=== PATIENT | female | born 1945 | race Caucasian/White ===

== ENCOUNTER → 2017-08-10 10:59 | Outpatient (CLI) | payer MEDICARE, SELFPAY ==
[2017-08-10 13:44] LABS: AST(SGOT) 16 U/L (15-37); Alanine Aminotransfer ALT/SGPT 18 U/L (13-56); Anion Gap 8 (5-15); BUN 26 mg/dL (7-18); BUN/Creat Ratio 22.2 RATIO (10-20); Calcium,Total 9.1 mg/dL (8.5-10.1); Chloride 112 mmol/L (98-107); Cholesterol 140 mg/dL (200); Creatinine, Serum 1.17 mg/dL (0.55-1.02); EST Glomerular Filtration Rate 49 mL/min (>60); Est Glom Filt Rate - Afr Amer 59 mL/min (>60); Glucose 80 mg/dL (74-106); High Density Lipoprotein 78 mg/dL; Potassium 4.4 mmol/L (3.5-5.1); Sodium Level 143 mmol/L (136-145); T4 Total, Thyroxin 13.7 ug/dL (4.8-13.9); Thyroid Stim Hormone (TSH) 4.18 uIU/mL (0.358-3.74); Triglycerides 62 mg/dL; Very Low Density Lipoprotein 12 mg/dL (5-40)
== END ==
PROVIDERS: Family Provider Family Medicine; PCP Family Medicine; Visit Provider Family Medicine
DX: E78.5 Hyperlipidemia, unspecified (principal); I47.1 Supraventricular tachycardia; E03.9 Hypothyroidism, unspecified
CPT/HCPCS: 36415; 80048; 80061; 84436; 84443; 84450; 84460

== ENCOUNTER → 2017-10-16 10:29 | Outpatient (CLI) | payer MEDICARE, SELFPAY | PROVIDERS: Family Provider Family Medicine; PCP Family Medicine; Visit Provider Family Medicine | DX: E03.9 Hypothyroidism, unspecified (principal) | CPT/HCPCS: 36415; 84443 ==

== ENCOUNTER → 2018-03-22 11:46 | Outpatient (CLI) | payer MEDICARE, SELFPAY ==
[2018-03-05 12:47] VITALS: BMI 36.2
--- NOTE | 2018-03-22 11:50 | BI_ITS ---
MAMMOGRAPHY - BILATERAL SCREENING 3-D RICKY SYNTHESIS REASON FOR EXAM: Female, 72 years old. Bilateral Screening 3-D tomosynthesis PERTINENT HISTORY: No significant family history. TECHNIQUE: 2-D mammograms and 3-D Ricky synthesis of the breast (s) were performed. CAD was performed. COMPARISON: February 14, 2017, April 05, 2015 FINDINGS: The breast composition is almost entirely fat. There is a pacemaker present. Scattered benign calcifications are seen. No dense spiculated masses or suspicious microcalcifications are identified. No architectural distortion is identified. There is no skin thickening or retraction. There has been no significant change since the prior study. BI/SCREENING MAMM (CAD), BILAT IMPRESSION: No mammographic signs of malignancy. Routine yearly mammograms recommended. ASSESSMENT CATEGORY: BIRADS Category 2: Benign. A letter regarding these results will be sent to the patient by the facility within 30 days. FOLLOW UP RECOMMENDATION: Yearly follow up mammogram recommended. (A) Approximately 10% of breast cancers are not detected by mammography. A normal mammogram should not delay biopsy of a clinically suspicious abnormality. Electronically Signed: Papi Angulo MD at 11:12 EST , Service support ,
== END ==
PROVIDERS: Family Provider Family Medicine; PCP Family Medicine; Visit Provider Family Medicine
DX: Z12.31 Encounter for screening mammogram for malignant neoplasm of breast (principal)
CPT/HCPCS: 77063; 77067

== ENCOUNTER → 2018-08-13 10:58 | Outpatient (CLI) | payer MEDICARE, SELFPAY ==
[2018-03-05 12:47] VITALS: BMI 36.2
[2018-08-13 13:01] LABS: AST(SGOT) 22 U/L (15-37); Alanine Aminotransfer ALT/SGPT 24 U/L (13-56); Anion Gap 5 (5-15); BUN 27 mg/dL (7-18); Calcium,Total 9.1 mg/dL (8.5-10.1); Chloride 109 mmol/L (98-107); Cholesterol 153 mg/dL (200); Creatinine, Serum 1.04 mg/dL (0.55-1.02); EST Glomerular Filtration Rate 56 mL/min (>60); Est Glom Filt Rate - Afr Amer 67 mL/min (>60); Glucose 88 mg/dL (74-106); High Density Lipoprotein 76 mg/dL; Potassium 4.7 mmol/L (3.5-5.1); Sodium Level 141 mmol/L (136-145); Thyroid Stim Hormone (TSH) 0.39 uIU/mL (0.358-3.74); Triglycerides 72 mg/dL; Very Low Density Lipoprotein 14 mg/dL (5-40)
== END ==
PROVIDERS: Family Provider Family Medicine; PCP Family Medicine; Referring Provider Family Medicine; Visit Provider Family Medicine
DX: I10 Essential (primary) hypertension (principal); E03.9 Hypothyroidism, unspecified; E78.5 Hyperlipidemia, unspecified
CPT/HCPCS: 36415; 80048; 80061; 84436; 84443; 84450; 84460

== ENCOUNTER → 2019-05-23 12:10 | Outpatient (CLI) | payer MEDICARE, SELFPAY ==
[2019-03-06 09:10] VITALS: BMI 36.0
--- NOTE | 2019-05-23 12:12 | BI_ITS ---
MAMMOGRAPHY - BILATERAL SCREENING REASON FOR EXAM: Female, 73 years old. Routine annual screening examination. PERTINENT HISTORY: No family history of breast cancer TECHNIQUE: Digital bilateral breast ricky (3D mammographic acquisition) in the CC and MLO projections. 2-D mediolateral oblique (MLO) and craniocaudad (CC) views of both breasts were obtained. CAD: Full Field Digital Mammography with Computer Added Detection was performed. COMPARISON: None. FINDINGS: Breast Composition: Scattered breast parenchyma is identified There are no dominant masses or suspicious calcifications. No other significant abnormalities are identified. BI/SCREEN MAMM (CAD) W/RICKY BILAT IMPRESSION: Stable bilateral screening mammogram. Yearly follow-up mammogram recommended. (A) ASSESSMENT CATEGORY: BIRADS Category 1: Negative. A letter regarding these results will be sent to the patient by the facility within 30 days. Approximately 10% of breast cancers are not detected by mammography. A normal mammogram should not delay biopsy of a clinically suspicious abnormality. [id number] Electronically Signed: Coleman Maldonado, at 16:51 EST Tel , Service support ,
== END ==
PROVIDERS: Family Provider Family Medicine; PCP Family Medicine; Referring Provider Family Medicine; Visit Provider Family Medicine
DX: Z12.31 Encounter for screening mammogram for malignant neoplasm of breast (principal)
CPT/HCPCS: 77063; 77067

== ENCOUNTER → 2019-08-12 10:47 | Outpatient (CLI) | payer MEDICARE, SELFPAY ==
[2019-05-23 13:23] VITALS: BMI 36.6
[2019-08-12 13:21] LABS: AST(SGOT) 14 U/L (15-37); Alanine Aminotransfer ALT/SGPT 18 U/L (13-56); Anion Gap 8 (5-15); BUN 26 mg/dL (7-18); BUN/Creat Ratio 26.6 RATIO (10-20); Calcium,Total 8.9 mg/dL (8.5-10.1); Chloride 111 mmol/L (98-107); Cholesterol 137 mg/dL (200); Creatinine, Serum 0.98 mg/dL (0.55-1.02); EST Glomerular Filtration Rate 59 mL/min (>60); Est Glom Filt Rate - Afr Amer 72 mL/min (>60); Glucose 89 mg/dL (74-106); High Density Lipoprotein 64 mg/dL; Sodium Level 144 mmol/L (136-145); T4 Total, Thyroxin 15.2 ug/dL (4.8-13.9); Thyroid Stim Hormone (TSH) 0.43 uIU/mL (0.358-3.74); Triglycerides 60 mg/dL; Very Low Density Lipoprotein 12 mg/dL (5-40)
== END ==
PROVIDERS: PCP Family Medicine; Visit Provider Family Medicine
DX: E78.5 Hyperlipidemia, unspecified (principal); E03.9 Hypothyroidism, unspecified; I10 Essential (primary) hypertension
CPT/HCPCS: 36415; 80048; 80061; 84436; 84443; 84450; 84460

== ENCOUNTER → 2020-05-13 08:34 | Outpatient (CLI) | payer MEDICARE, SELFPAY ==
[2020-05-10 10:45] VITALS: BMI 37.6
[2020-05-13 10:28] LABS: ALB/GLOB Ratio 0.9 RATIO (0.9-2.4); AST(SGOT) 22 U/L (15-37); Alanine Aminotransfer ALT/SGPT 26 U/L (13-56); Albumin, Serum 3.7 g/dL (3.2-5.0); Alkaline Phosphatase 124 U/L (45-117); Anion Gap 5 (5-15); BUN 19 mg/dL (7-18); BUN/Creat Ratio 13.3 RATIO (10-20); Calcium,Total 9.1 mg/dL (8.5-10.1); Chloride 106 mmol/L (98-107); Cholesterol 166 mg/dL (200); Creatinine, Serum 1.43 mg/dL (0.55-1.02); EST Glomerular Filtration Rate 38 mL/min (>60); Est Glom Filt Rate - Afr Amer 46 mL/min (>60); Free T3 1.6 pg/mL (2.18-3.98); Globulin 3.9 g/dL (2.2-4.2); Glucose 115 mg/dL (74-106); High Density Lipoprotein 92 mg/dL; Potassium 4.2 mmol/L (3.5-5.1); Protein, Total 7.6 g/dL (6.4-8.2); Sodium Level 140 mmol/L (136-145); T4 Free Direct 1.87 ng/dL (0.76-1.46); Thyroid Stim Hormone (TSH) 8.35 uIU/mL (0.358-3.74); Triglycerides 111 mg/dL; Very Low Density Lipoprotein 22 mg/dL (5-40)
--- NOTE | 2020-05-13 17:09 | PFTCOMP_ITS ---
COMPLETE PULMONARY FUNCTION TEST INTERPRETATION Brief HPI: Patient is a 74 year old female, currently under the care of Damari Reese, who presents to [facility] for complete pulmonary function tests secondary to diagnosis of A. fib. Respiratory therapist reports good effort and reproducible results. Patient did have significant difficulty with exhalation, likely underestimating FVC Interpretation: Forced expiration spirometry shows no large airways obstructive ventilatory defect with an FEV1 of 93% predicted. There is no significant bronchodilator response by strict ATS criteria. Spirograms are of poor quality and do not plateau. The respiratory flow volume loop shows a normal pattern. Lung volumes by body plethysmography show a normal total lung capacity at 4.68 L, 106% predicted. FRC and RV are elevated out of proportion. Lung volume measurements are consistent with air-trapping. Diffusion capacity by carbon monoxide is decreased at 61% predicted. The airway resistance is normal. No previous pulmonary function tests were available for review. Impression: Isolated reduction in diffusion capacity with some stigmata of possible small airways disease. Would recommend continued monitoring of DLCO if patient continued on amiodarone
== END ==
PROVIDERS: PCP Family Medicine; Referring Provider Physician Assistant Medical; Visit Provider Physician Assistant Medical
DX: I48.0 Paroxysmal atrial fibrillation (principal); I10 Essential (primary) hypertension; E78.5 Hyperlipidemia, unspecified
CPT/HCPCS: 36415; 80053; 80061; 84439; 84443; 84481; 94060; 94726; 94729

== ENCOUNTER → 2020-06-02 09:46 | Outpatient (CLI) | payer MEDICARE, SELFPAY ==
[2020-05-10 10:45] VITALS: BMI 37.6
--- NOTE | 2020-06-02 09:48 | BI_ITS ---
MAMMOGRAPHY - BILATERAL SCREENING REASON FOR EXAM: Female, 74 years old. Routine annual screening examination. PERTINENT HISTORY: CURRENT RASH UNDER BILAT BREAST TECHNIQUE: Digital bilateral breast ricky (3D mammographic acquisition) in the CC and MLO projections. 2-D mediolateral oblique (MLO) and craniocaudad (CC) views of both breasts were obtained. CAD: Full Field Digital Mammography with Computer Added Detection was performed. COMPARISON: 05/23/2019 and 03/22/2018 FINDINGS: Breast Composition: The breasts are almost entirely fatty. There are no dominant masses or suspicious calcifications. No other significant abnormalities are identified. BI/SCRN MAMM (CAD)W/RICKY BILAT IMPRESSION: Stable bilateral screening mammogram. Yearly follow-up mammogram recommended. (A) ASSESSMENT CATEGORY: BIRADS Category 2: Benign. A letter regarding these results will be sent to the patient by the facility within 30 days. Approximately 10% of breast cancers are not detected by mammography. A normal mammogram should not delay biopsy of a clinically suspicious abnormality. [id number] Electronically Signed: Zakia Cordero MD at 16:50 EST Tel , Service support ,
== END ==
PROVIDERS: PCP Family Medicine; Referring Provider Family Medicine; Visit Provider Family Medicine
DX: Z12.31 Encounter for screening mammogram for malignant neoplasm of breast (principal)
CPT/HCPCS: 77063; 77067

== ENCOUNTER → 2020-08-13 10:51 | Outpatient (CLI) | payer MEDICARE, SELFPAY ==
[2020-05-10 10:45] VITALS: BMI 37.6
[2020-08-13 12:43] LABS: AST(SGOT) 17 U/L (15-37); Alanine Aminotransfer ALT/SGPT 24 U/L (13-56); Cholesterol 133 mg/dL (200); High Density Lipoprotein 78 mg/dL; T4 Total, Thyroxin 16.9 ug/dL (4.8-13.9); Thyroid Stim Hormone (TSH) 0.26 uIU/mL (0.358-3.74); Triglycerides 63 mg/dL; Very Low Density Lipoprotein 13 mg/dL (5-40)
== END ==
PROVIDERS: PCP Family Medicine; Referring Provider Family Medicine; Visit Provider Family Medicine
DX: E78.5 Hyperlipidemia, unspecified (principal); E03.9 Hypothyroidism, unspecified
CPT/HCPCS: 36415; 80048; 80061; 84436; 84443; 84450; 84460

== ENCOUNTER 2021-06-14 10:22 | Outpatient (CLI) | payer MEDICARE, SELFPAY ==
--- NOTE | 2021-06-14 10:25 | BI_ITS ---
MAMMOGRAPHY - BILATERAL SCREENING REASON FOR EXAM: Female, 75 years old. Routine annual screening examination. PERTINENT HISTORY: Non-contributory. TECHNIQUE: Digital bilateral breast ricky (3D mammographic acquisition) in the CC and MLO projections. 2-D mediolateral oblique (MLO) and craniocaudad (CC) views of both breasts were obtained. CAD: Full Field Digital Mammography with Computer Added Detection was performed. COMPARISON: Comparison is made with prior study dated 06/02/2020 and 05/23/2019. FINDINGS: Breast Composition: There are scattered areas of fibroglandular density. There are no dominant masses or suspicious calcifications. No other significant abnormalities are identified. There has been no significant change since the prior study. BI/SCRN MAMM (CAD)W/RICKY BILAT IMPRESSION: Stable bilateral screening mammogram. Yearly follow-up mammogram recommended. (A) ASSESSMENT CATEGORY: BIRADS Category 1: Negative. A letter regarding these results will be sent to the patient by the facility within 30 days. Approximately 10% of breast cancers are not detected by mammography. A normal mammogram should not delay biopsy of a clinically suspicious abnormality. [id number] Electronically Signed: Clint Young MD at 11:10 EDT ,
== END 2021-06-14 23:59 | disposition home or self-care (01) ==
PROVIDERS: PCP Family Medicine; Visit Provider Family Medicine
DX: Z12.31 Encounter for screening mammogram for malignant neoplasm of breast (principal)
CPT/HCPCS: 77063; 77067

== ENCOUNTER → 2021-08-15 | Outpatient (CLI) | payer MEDICARE, SELFPAY ==
[2021-08-15 13:22] LABS: Anion Gap 8 (5-15); BUN 30 mg/dL (7-18); Calcium,Total 8.9 mg/dL (8.5-10.1); Chloride 110 mmol/L (98-107); Cholesterol 157 mg/dL (200); EST Glomerular Filtration Rate 47 mL/min (>60); Est Glom Filt Rate - Afr Amer 57 mL/min (>60); Glucose 87 mg/dL (74-106); High Density Lipoprotein 84 mg/dL; Potassium 4.5 mmol/L (3.5-5.1); Sodium Level 143 mmol/L (136-145); Triglycerides 58 mg/dL
[2021-08-15 13:23] LABS: Very Low Density Lipoprotein 12 mg/dL (5-40)
== END | disposition home or self-care (01) ==
LOC: MFPLAB 11:17
PROVIDERS: PCP Family Medicine; Visit Provider Family Medicine
DX: I10 Essential (primary) hypertension (principal)
CPT/HCPCS: 36415; 80048; 80061

== ENCOUNTER → 2021-11-25 | Outpatient (CLI) | payer MEDICARE, SELFPAY ==
--- NOTE | 2021-11-25 12:40 | PFTCOMP ---
COMPLETE PULMONARY FUNCTION TEST INTERPRETATION Brief HPI: Patient is a 76 -year-old female, currently under the care of Coleman Dutta, who presents to [facility] for complete pulmonary function tests secondary to diagnosis of amiodarone use. Respiratory therapist reports good effort and reproducible results. Interpretation: Forced expiration spirometry shows no large airways obstructive ventilatory defect with an FEV1 of 92% predicted. There is a significant bronchodilator response in FVC by strict ATS criteria. Spirograms are of good quality and plateau normally. The respiratory flow volume loop shows a normal pattern. Lung volumes by body plethysmography show a normal total lung capacity at 4.89 L, 112% predicted. FRC and RV are elevated out of proportion. Lung volume measurements are consistent with hyperinflation and air-trapping. Diffusion capacity by carbon monoxide is at the lower limit of normal at 63% predicted. The airway resistance is normal. Compared to previous pulmonary function tests from 05/13/20, there has been no significant change. Impression: Isolated reduction diffusion capacity with some stigmata of small airways disease, but no significant change compared to 2020.
== END | disposition home or self-care (01) ==
LOC: PSN 10:27
PROVIDERS: PCP Family Medicine; Referring Provider Nurse Practitioner Family; Visit Provider Nurse Practitioner Family
DX: Z79.899 Other long term (current) drug therapy (principal)
CPT/HCPCS: 94060; 94726; 94729

== ENCOUNTER → 2022-02-13 | Outpatient (CLI) | payer MEDICARE, SELFPAY ==
[2022-02-13 13:01] LABS: T4 Total, Thyroxin 16.5 ug/dL (4.8-13.9); Thyroid Stim Hormone (TSH) 8.39 uIU/mL (0.358-3.74)
== END | disposition home or self-care (01) ==
LOC: MFPLAB 10:19
PROVIDERS: PCP Family Medicine; Visit Provider Family Medicine
DX: E03.9 Hypothyroidism, unspecified (principal)
CPT/HCPCS: 36415; 84436; 84443

== ENCOUNTER → 2022-06-15 | Outpatient (CLI) | payer MEDICARE, SELFPAY ==
--- NOTE | 2022-06-15 09:00 | BI_ITS ---
MAMMOGRAPHY - BILATERAL SCREENING REASON FOR EXAM: Female, 76 years old. Routine annual screening examination. PERTINENT HISTORY: Non-contributory. TECHNIQUE: Digital bilateral breast ricky (3D mammographic acquisition) in the CC and MLO projections. 2-D mediolateral oblique (MLO) and craniocaudad (CC) views of both breasts were obtained. CAD: Full Field Digital Mammography with Computer Added Detection was performed. COMPARISON: Comparison is made with prior study dated June 14, 2021 and June 02, 2020. FINDINGS: Breast Composition: There are scattered areas of fibroglandular density. There are no dominant masses or suspicious calcifications. Stable asymmetry of breast tissue with more breast tissue is seen in the upper lateral aspect of the left breast as compared to the right side. A pacemaker battery pack is seen in the right axillary region. No other significant abnormalities are identified. There has been no significant change since the prior study. BI/SCRN MAMM (CAD)W/RICKY BILAT IMPRESSION: Stable bilateral screening mammogram. Yearly follow-up mammogram recommended. (A) ASSESSMENT CATEGORY: BIRADS Category 2: Benign. A letter regarding these results will be sent to the patient by the facility within 30 days. Approximately 10% of breast cancers are not detected by mammography. A normal mammogram should not delay biopsy of a clinically suspicious abnormality. [id number] Electronically Signed: Clint Young MD at 11:11 EDT ,
== END | disposition home or self-care (01) ==
LOC: OPBI 08:58
PROVIDERS: PCP Family Medicine; Referring Provider Family Medicine; Visit Provider Family Medicine
DX: Z12.31 Encounter for screening mammogram for malignant neoplasm of breast (principal)
CPT/HCPCS: 77063; 77067

== ENCOUNTER 2022-07-03 20:11 | Emergency (ER) | payer MEDICARE, SELFPAY ==
[2022-07-03 20:12] VITALS: BP 164/60; PULSE 60; RESP 18; TEMP 36.1; O2SAT 100; BMI 31.3
--- NOTE | 2022-07-03 23:11 | RAD_ITS ---
INDICATION: fall EXAMINATION/TECHNIQUE: X-RAY - RIGHT XR Humerus Min 2 Views 3 VIEWS COMPARISON: None. FINDINGS: SOFT TISSUES: No soft tissue swelling or gas. No radiopaque foreign body. BONES/JOINTS Anterior-inferior glenohumeral dislocation. Greater tuberosity comminuted displaced fracture.. Normal acromioclavicular alignment with mild degenerative change. Preservation of the joint space. No sclerotic or destructive changes observed. Cardiac pacer present. RAD/Humerus min 2 Views IMPRESSION: Anterior-inferior glenohumeral dislocation. Comminuted displaced humeral greater tuberosity fracture. Electronically Signed: Sammy Savage MD at 0:11 EDT ,
--- NOTE | 2022-07-03 23:11 | EX.ED.GENINJ ---
HPI History of Present Illness Chief Complaint: Fall Informant: patient and family Onset/Context/Timing Onset: Today Location of pain/injuries: Right arm Current Severity: Moderate Maximum Severity: Moderate Narrative Narrative: Patient present secondary to right arm injury. Patient got up too quickly today and was lightheaded and fell. She injured her right upper arm. She is right-hand dominant. She denies striking her head. Although Eliquis was initially listed on her med list, family states that she is no longer on Eliquis. She did not lose consciousness and has otherwise been acting appropriately. She was able to get up and ambulate after her fall and has had no hip or lower extremity pain. [facility] Medical History (Updated 07/04/22 @ 02:[address] Molly Gonsalves MD) Atrial fibrillation with rapid ventricular response (11/07/19) Dyslipidemia Essential (primary) hypertension Hypothyroidism Mental disability Obesity (BMI 35.0-39.9 without comorbidity) Paroxysmal atrial fibrillation (11/07/19) Paroxysmal atrial tachycardia Sick sinus syndrome Sinus bradycardia Home Medications multivitamin,[id number] (Complete Multivitamin tablet) 1 tab PO QDAY 09/04/17 [History Last Taken Unknown] pravastatin 40 mg tablet 40 mg PO QDAY 09/04/17 [History Last Taken Unknown] ibuprofen 200 mg capsule 200 mg PO TID-QID PRN 09/05/17 [History Last Taken Unknown] apixaban 5 mg tablet (Eliquis) 5 mg PO BID #180 tabs 11/14/19 [Rx Last Taken Unknown] metoprolol succinate 50 mg tablet,extended release 24 hr (Toprol XL) 50 mg PO DAILY #90 tabs 11/14/19 [Rx Last Taken Unknown] levothyroxine 150 mcg tablet 150 mcg PO DAILY 11/12/20 [History Last Taken Unknown] amiodarone 200 mg tablet 100 mg PO DAILY #45 tabs 03/22/21 [Rx Last Taken Unknown] hydrocodone-acetaminophen 5-325mg 5mg-325mg 1 tab PO Q6H PRN PRN Pain 4 days #16 TABLETS 07/04/22 [Rx Last Taken Unknown] Allergy/AdvReac Type Severity Reaction Status Date / Time No Known Allergies Allergy Verified 05/25/22 11:13 Family History Mother CAD (coronary artery disease) Hypertension Heart disease afib Father CAD (coronary artery disease) CVA (cerebral vascular accident) Hypertension Heart disease afib Surgical History History of tonsillectomy Presence of cardiac pacemaker (08/24/15) Social History Smoking Status: Never smoker how long ago did patient quit smokin or more years alcohol intake: never substance use type: does not use caffeine: Yes Type: coffee Number of servings: 1 ROS ROS ED Constitutional Constitutional ED: Denies chills or fever(s) Eyes Eyes: Denies change in vision ENT ENT ED: Denies rhinorrhea or sore throat Cardiovascular Cardiovascular: Denies chest pain or palpitations Respiratory/Chest Respiratory/Chest: Denies cough or dyspnea Gastrointestinal Gastrointestinal: Denies abdominal pain, nausea or vomiting Genitourinary Genitourinary ED: Denies dysuria Musculoskeletal Musculoskeletal: Reports extremity pain; Denies back pain Integumentary Denies Abrasions or rash Neurologic Neurologic: Denies headache(s) or weakness Psychiatric Psychiatric: Denies anxiety or depression Allergic/Immunologic Allergic/Immunologic ED: Denies lip swelling or urticaria EXAM Physical Exam Const Vital Signs: 07/03/22 20:12 07/03/22 23:03 07/04/22 00:18 Temperature 96.9 F L Temperature Source Temporal Pulse Rate 60 Pulse Rate [1 (Initial Baseline)] Pulse Rate [2] Respiratory Rate 18 Respiratory Rate [1 (Initial Baseline)] Respiratory Rate [2] Respiratory Effort Normal Blood Pressure 164/60 H Blood Pressure [1 (Initial Baseline)] Blood Pressure [2] Blood Pressure Mean 94 Pulse Ox 100 99 Oxygen Delivery Method Room Air Room Air Room Air Oxygen Delivery Method [1 (Initial Baseline)] Oxygen Delivery Method [2] Oxygen Flow Rate (L/min) 98 Oxygen Flow Rate (L/min) [1 (Initial Baseline)] Oxygen Flow Rate (L/min) [2] 07/04/22 01:31 07/04/22 01:33 07/04/22 01:52 Temperature 98.7 F Temperature Source Pulse Rate 74 Pulse Rate [1 (Initial Baseline)] 68 Pulse Rate [2] 63 Respiratory Rate 22 H Respiratory Rate [1 (Initial Baseline)] 16 Respiratory Rate [2] 17 Respiratory Effort Blood Pressure 154/60 H Blood Pressure [1 (Initial Baseline)] 161/60 H Blood Pressure [2] 150/54 H Blood Pressure Mean Pulse Ox 97 Oxygen Delivery Method Room Air Room Air Oxygen Delivery Method [1 (Initial Baseline)] Room Air Oxygen Delivery Method [2] Nasal Cannula Oxygen Flow Rate (L/min) Oxygen Flow Rate (L/min) [1 (Initial Baseline)] 2 Oxygen Flow Rate (L/min) [2] 2 07/04/22 01:55 07/04/22 02:00 07/04/22 02:01 Temperature Temperature Source Pulse Rate 62 63 Pulse Rate [1 (Initial Baseline)] Pulse Rate [2] Respiratory Rate 22 H 15 Respiratory Rate [1 (Initial Baseline)] Respiratory Rate [2] Respiratory Effort Blood Pressure 144/58 H 141/64 H Blood Pressure [1 (Initial Baseline)] Blood Pressure [2] Blood Pressure Mean Pulse Ox 96 95 95 Oxygen Delivery Method Room Air Room Air Room Air Oxygen Delivery Method [1 (Initial Baseline)] Oxygen Delivery Method [2] Oxygen Flow Rate (L/min) Oxygen Flow Rate (L/min) [1 (Initial Baseline)] Oxygen Flow Rate (L/min) [2] 07/04/22 02:06 07/04/22 02:41 Temperature Temperature Source Pulse Rate 63 66 Pulse Rate [1 (Initial Baseline)] Pulse Rate [2] Respiratory Rate 17 17 Respiratory Rate [1 (Initial Baseline)] Respiratory Rate [2] Respiratory Effort Blood Pressure 144/55 H 140/55 H Blood Pressure [1 (Initial Baseline)] Blood Pressure [2] Blood Pressure Mean Pulse Ox 97 98 Oxygen Delivery Method Room Air Oxygen Delivery Method [1 (Initial Baseline)] Oxygen Delivery Method [2] Oxygen Flow Rate (L/min) Oxygen Flow Rate (L/min) [1 (Initial Baseline)] Oxygen Flow Rate (L/min) [2] Positive well nourished and well developed General Appearance ED: well developed HEENT Reports normocephalic and head/scalp atraumatic Eyes PERRL and EOMs intact bilaterally Neck supple Chest Wall inspection of chest normal and palpation of chest normal Resp normal respiratory effort and clear to auscultation bilaterally Cardio regular rate and regular rhythm GI normal to inspection, nondistended, normoactive bowel sounds Palpation: soft Extremity Extremity Narrative: Tenderness palpation right mid to upper humerus. Strong distal pulse with good hand grasp on the right. Normal sensation and cap refill. Neuro no sensory deficits noted Sensorium / Orientation: alert Psych mental status grossly normal Skin no rashes or lesions noted PROC Procedures Procedural Sedation 1 (Initial Baseline): Consent Signed: Yes Any Problems With Anesthesia: No You/Your family experience fever (hyperthermia) w/anesthesia: No Sedation medication: Propofol Dose: 100 Route: IV Total Moderate Sedation Units: 16 Maliampati Score: Class III ASA Classification: II MDM MDM MDM Narrative Medical decision making narrative: Patient given a tab of [place] and right humerus x-rays obtained. Radiography Diagnostic Testing: Clinical Impression(s) from Imaging Studies Humerus X-Ray 07/03/22 23:11 IMPRESSION: Anterior-inferior glenohumeral dislocation. Comminuted displaced humeral greater tuberosity fracture. Electronically Signed: Sammy Savage MD at 0:11 EDT , Shoulder X-Ray 07/04/22 01:52 IMPRESSION: Successful glenohumeral joint reduction with improved alignment of greater tuberosity fracture.. Electronically Signed: Sammy Savage MD at 2:15 EDT , Treatment and Re-Evaluation Narrative: Right humerus x-rays reviewed by myself. There is evidence of a shoulder dislocation. Radiology interpretation is reviewed and agrees. It also appears she has a small fracture off the greater tuberosity. Test results discussed with sister who is POA at bedside. She gives consent for procedural sedation for closed reduction of the right shoulder. Please see procedure note. Repeat right shoulder x-rays are obtained after reduction. There is good reduction at the glenohumeral joint per my interpretation. Radiology interpretation is reviewed. At this time patient is awake and tolerating p.o. I will send a prescription for analgesics to the pharmacy for her and refer her to orthopedics. Return instructions given. Discharge Plan Triage Chief Complaint: Fall ED Provider: Molly Gonsalves Dx/Rx/DC Orders Clinical Impression: Fall, Dislocation of shoulder, right, closed, Closed fracture of greater tuberosity of humerus Instructions: ED Dislocation: Shoulder (Reduced), ED Fracture, Shoulder Prescriptions: New hydrocodone-acetaminophen 5-325 mg tablet 1 tab PO Q6H PRN PRN (Reason: Pain) 4 Days Qty: 16 0RF No Action ibuprofen 200 mg capsule 200 mg PO TID-QID PRN multivitamin,su-wkqv-tdhthcre tablet tablet 1 tab PO QDAY pravastatin 40 mg tablet 40 mg PO QDAY metoprolol succinate [Toprol XL] 50 mg tablet extended release 24 hr 50 mg PO DAILY Qty: 90 3RF Eliquis 5 mg tablet 5 mg PO BID Qty: 180 3RF levothyroxine 150 mcg tablet 150 mcg PO DAILY amiodarone 200 mg tablet 100 mg PO DAILY Qty: 45 3RF Primary Care Provider: Katy Cruz Referrals: Katy Cruz MD [Primary Care Provider] - Rainer Kay MD [Med Staff - Active Staff] - 3-5 Days Disposition Disposition: Home, Self Care Discharge Date/Time: 07/04/22 02:42
[2022-07-03] MEDS: HYDROcodone Bitartrate/Apap 5/325 Tablet PO (23:30)
[2022-07-04] VITALS (9 sets, daily range): BP systolic 140–161; BP diastolic 54–64; PULSE 62–74; RESP 15–22; TEMP 37.1; O2SAT 95–99
--- NOTE | 2022-07-04 01:52 | RAD_ITS ---
INDICATION: post reduction EXAMINATION/TECHNIQUE: X-RAY - RIGHT XR Shoulder Min 2 Views 2 VIEWS COMPARISON: July 03, 2022. FINDINGS: SOFT TISSUES: Superior lateral shoulder edema.. No radiopaque foreign body. BONES/JOINTS: Normal glenohumeral joint alignment.. Greater tuberosity fracture is more difficult to appreciate.. Normal acromioclavicular alignment. No aggressive osseous lesion. RAD/Shoulder min 2 Views IMPRESSION: Successful glenohumeral joint reduction with improved alignment of greater tuberosity fracture.. Electronically Signed: Sammy Savage MD at 2:15 EDT ,
== END 2022-07-04 02:42 | disposition home or self-care (01) ==
PROVIDERS: Emergency Provider Emergency Medicine; PCP Family Medicine; Visit Provider Emergency Medicine
DX: S42.351A Displaced comminuted fracture of shaft of humerus, right arm, initial encounter for closed fracture (principal); I10 Essential (primary) hypertension; E78.5 Hyperlipidemia, unspecified; Z87.891 Personal history of nicotine dependence; W19.XXXA Unspecified fall, initial encounter
CPT/HCPCS: 23650; 73030; 73060; 99152; 99285; J7030; A4216

== ENCOUNTER → 2022-07-18 | Outpatient (CLI) | payer MEDICARE, SELFPAY ==
[2022-07-18 12:57] LABS: Absolute Lymphocyte Count 1.19 X10^3/uL (0.83-4.51); Absolute Neutrophil Count 3.5 X10^3/uL (2.0-7.7); Basophil# 0.01 X10^3/uL; Basophil% 0.2 % (0-1); Hemoglobin 13.2 g/dL (12.0-15.0); Lymphocyte # 1.19 X10^3/ul (0.83-4.51); Lymphocyte % 23.3 % (19-41); Mean Corp Hgb Conc 32.2 g/dL (32-36); Mean Corpuscular Hgb 31.6 pg (27.0-32.0); Mean Corpuscular Volume 98.1 fL (81-99); Mean Platelet Vol. 11.3 fl (6.2-12.0); Monocyte# 0.44 X10^3/uL; Monocyte% 8.6 % (0-10); NRBC Flagged by Analyzer 0 % (0-5); Neutrophil # 3.46 X10^3/uL (2.7-7.7); Neutrophil % 67.7 % (47-70); Platelet Count 258 K/mm3 (150-450); RBC Distribution Width CV 13.2 % (11.6-14.6); RBC Distribution Width SD 46.8 fl (35.1-43.9); Red Blood Count 4.18 M/mm3 (4.2-5.4); White Blood Count 5.1 K/mm3 (4.4-11.0)
[2022-07-18 14:16] LABS: ALB/GLOB Ratio 0.9 RATIO (0.9-2.4); AST(SGOT) 22 U/L (15-37); Alanine Aminotransfer ALT/SGPT 23 U/L (13-56); Albumin, Serum 3.2 g/dL (3.2-5.0); Alkaline Phosphatase 152 U/L (45-117); Anion Gap 5 (5-15); BUN 20 mg/dL (7-18); BUN/Creat Ratio 20.8 RATIO (10-20); Calcium,Total 8.9 mg/dL (8.5-10.1); Chloride 107 mmol/L (98-107); Creatinine, Serum 0.96 mg/dL (0.55-1.02); EST Glomerular Filtration Rate 60 mL/min (>60); Est Glom Filt Rate - Afr Amer 73 mL/min (>60); Globulin 3.4 g/dL (2.2-4.2); Glucose 81 mg/dL (74-106); Potassium 4.2 mmol/L (3.5-5.1); Protein, Total 6.6 g/dL (6.4-8.2); Sodium Level 138 mmol/L (136-145)
== END | disposition home or self-care (01) ==
LOC: MFPLAB 10:54
PROVIDERS: PCP Family Medicine; Visit Provider Family Medicine
DX: R60.0 Localized edema (principal)
CPT/HCPCS: 36415; 80053; 84443; 85025

== ENCOUNTER → 2022-08-22 | Outpatient (CLI) | payer MEDICARE, SELFPAY ==
[2022-08-22 12:40] LABS: Thyroid Stim Hormone (TSH) 3.41 uIU/mL (0.358-3.74)
== END | disposition home or self-care (01) ==
LOC: MFPLAB 09:45
PROVIDERS: PCP Family Medicine; Visit Provider Family Medicine
DX: E03.9 Hypothyroidism, unspecified (principal)
CPT/HCPCS: 36415; 84443

== ENCOUNTER → 2022-09-08 | Outpatient (CLI) | payer MEDICARE, SELFPAY ==
--- NOTE | 2022-09-08 07:35 | CT_ITS ---
STUDY: CT RIGHT SHOULDER REASON FOR EXAM: Female, 77 years old. Nondisplaced fracture. RADIATION DOSAGE (If Supplied By Facility): CTDIvol = ( 25.24 ) mGy, DLP = ( 657.58 ) mGycm TECHNIQUE: The patient was scanned in a multi detector CT scanner. High resolution transaxial imaging was performed following the administration of 100 mL of Isovue-300 intravenous contrast material. Sagittal and coronal images were reconstructed. Individualized dose optimization techniques were used for this CT. COMPARISON: Right shoulder, July 04, 2022. 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 Normal glenoid rim, neck and visualized scapula. There is a healed fracture of the femoral head. There is bony productivity along the posterior aspect of the humeral head. There is also bony densities within the acromiohumeral space which appears narrowed.. Normal coracoid process. Normal visualized lateral clavicle. There is mild osteoarthritis with articular joint space narrowing. There is a Type II morphology (curved), with a neutral orientation. Normal visualized muscles and soft tissue structures. No evidence of vascular abnormality. CT/Extremity Upper WITH Contrast IMPRESSION: Healed fracture of the humeral head which appears slightly irregularity. There are associated bony fragments along the posterior aspect of the humeral head and within the acromiohumeral space. Electronically Signed: Nicholas Snow DO at 23:02 EDT ,
[2022-09-08 08:04] LABS: CREATININE FINGERSTICK < 0.9 mg/dL (0.55-1.02); EGFR FINGERSTICK > 60.0000 mL/min (>60)
== END | disposition home or self-care (01) ==
LOC: CT 07:33
PROVIDERS: PCP Family Medicine; Referring Provider Physician Assistant; Visit Provider Physician Assistant
DX: S42.254D Nondisplaced fracture of greater tuberosity of right humerus, subsequent encounter for fracture with routine healing (principal); S43.084D Other dislocation of right shoulder joint, subsequent encounter; X58.XXXD Exposure to other specified factors, subsequent encounter
CPT/HCPCS: 73201; Q9967

== ENCOUNTER → 2022-10-11 | Outpatient (CLI) | payer MEDICARE, SELFPAY ==
--- NOTE | 2022-10-11 10:30 | BD_ITS ---
STUDY: DUAL ENERGY X-RAY ABSORPTIOMETRY / DXA REASON FOR EXAM: Female, 77 years old. [id number] TECHNIQUE: Bone Mineral Density (BMD) measurements of lumbar spine and bilateral hips were obtained. COMPARISON: None. FINDINGS: Lumbar Spine (L1-L4): g/cm2 (0.876) / T-score (-0.9) / Z-score (1.3) Findings are suggestive of normal bone density with a low fracture risk. Left Femur Total: g/cm2 (0.682) / T-score (-2.1) / Z-score (-0.3) Left Femoral Neck: g/cm2 (0.547) / T-score (-2.7) / Z-score (-0.6) Right Femur Total: g/cm2 (0.686) / T-score (-2.1) / Z-score (-0.3) Right Femoral Neck: g/cm2 (0.542) / T-score (-2.8) / Z-score (-0.7) BD/Dexa Bone Density Study IMPRESSION: The patient is considered osteoporotic as outlined below according to World Bryant Organization (WHO) criteria with a high fracture risk. Reference Information: The T-score is the number of standard deviations above or below the standard which is normal for young adults at their peak bone mineral density. The World Health Organization (WHO) interprets the T-scores as follows: Above -1 Normal bone density Between -1 and -2.5 Osteopenia Equal to / or below -2.5 Osteoporosis As a practical clinical guideline, osteopenia may be graded as follows: Mild -1 through -1.5 Moderate -1.6 through -2.0 Severe -2.1 through -2.4 The Z-score is the number of standard deviations above or below age-matched controls. A Z-score of less than -1.5 would be considered abnormal. References: 1. NIH Osteoporosis and Related Bone Diseases www osteo.org 2. International Society for Clinical Densitometry www iscd.org 3. National Osteoporosis Foundation www nof.org Electronically Signed: Clint Young MD at 9:20 EDT ,
== END | disposition home or self-care (01) ==
LOC: OPBD 10:20
PROVIDERS: PCP Family Medicine; Referring Provider Family Medicine; Visit Provider Family Medicine
DX: Z78.0 Asymptomatic menopausal state (principal); N95.9 Unspecified menopausal and perimenopausal disorder
CPT/HCPCS: 77080

== ENCOUNTER → 2023-02-27 | Outpatient (CLI) | payer MEDICARE, SELFPAY ==
[2023-02-27 12:40] LABS: Microalbumin,Random Urine 23.8 mg/L (NO RANGE EST.); Microalbumin:Creatinine Ratio 21.2 mg/g CRE (<30 mg/g CRE)
[2023-02-27 13:18] LABS: AST(SGOT) 24 U/L (15-37); Alanine Aminotransfer ALT/SGPT 28 U/L (13-56); Anion Gap 5 (5-15); BUN 24 mg/dL (7-18); BUN/Creat Ratio 20.2 RATIO (10-20); Calcium,Total 8.7 mg/dL (8.5-10.1); Chloride 110 mmol/L (98-107); Cholesterol 173 mg/dL (200); Creatinine, Serum 1.19 mg/dL (0.55-1.02); EST Glomerular Filtration Rate 47 mL/min (>60); Est Glom Filt Rate - Afr Amer 57 mL/min (>60); Glucose 93 mg/dL (74-106); High Density Lipoprotein 100 mg/dL; Potassium 4.2 mmol/L (3.5-5.1); Sodium Level 136 mmol/L (136-145); T4 Total, Thyroxin 17.9 ug/dL (4.8-13.9); Thyroid Stim Hormone (TSH) 1.52 uIU/mL (0.358-3.74); Triglycerides 46 mg/dL; Very Low Density Lipoprotein 9 mg/dL (5-40)
== END | disposition home or self-care (01) ==
LOC: MFPLAB 10:43
PROVIDERS: PCP Family Medicine; Visit Provider Family Medicine
DX: I10 Essential (primary) hypertension (principal); E03.9 Hypothyroidism, unspecified; E78.5 Hyperlipidemia, unspecified
CPT/HCPCS: 36415; 80048; 80061; 82043; 82570; 84436; 84443; 84450; 84460

== ENCOUNTER → 2023-06-19 | Outpatient (CLI) | payer MEDICARE, SELFPAY ==
--- NOTE | 2023-06-19 11:37 | BI_ITS ---
MAMMOGRAPHY - BILATERAL SCREENING REASON FOR EXAM: Female, 77 years old. Routine annual screening examination. PERTINENT HISTORY: Aunt with breast cancer. TECHNIQUE: Digital bilateral breast ricky (3D mammographic acquisition) in the CC and MLO projections. 2-D mediolateral oblique (MLO) and craniocaudad (CC) views of both breasts were obtained. CAD: Full Field Digital Mammography with Computer Added Detection was performed. COMPARISON: Comparison is made with prior study dated June 15, 2022 and June 14, 2021. FINDINGS: Breast Composition: There are scattered areas of fibroglandular density. There are no dominant masses or suspicious calcifications. Once again, there is stable asymmetry of breast tissue where more breast tissue is seen in the upper lateral aspect of the left breast as compared to the right side. A pacemaker battery pack is once again seen in the left axilla. No other significant abnormalities are identified. There has been no significant change since the prior study. BI/SCRN MAMM (CAD)W/RICKY BILAT IMPRESSION: Stable bilateral screening mammogram. Yearly follow-up mammogram recommended. (A) ASSESSMENT CATEGORY: BIRADS Category 2: Benign. A letter regarding these results will be sent to the patient by the facility within 30 days. Approximately 10% of breast cancers are not detected by mammography. A normal mammogram should not delay biopsy of a clinically suspicious abnormality. [id number] Electronically Signed: Clint Young MD at 13:55 EDT ,
== END | disposition home or self-care (01) ==
LOC: OPBI 11:37
PROVIDERS: PCP Family Medicine; Referring Provider Family Medicine; Visit Provider Family Medicine
DX: Z12.31 Encounter for screening mammogram for malignant neoplasm of breast (principal); Z80.3 Family history of malignant neoplasm of breast
CPT/HCPCS: 77063; 77067

== ENCOUNTER → 2023-08-27 | Outpatient (CLI) | payer MEDICARE, SELFPAY ==
[2023-08-27 13:08] LABS: Absolute Lymphocyte Count 1.18 X10^3/uL (0.83-4.51); Absolute Neutrophil Count 2.7 X10^3/uL (2.0-7.7); Eosinophil# 0.07 X10^3/uL; Eosinophils% 1.6 % (0-5); Hematocrit 42.1 % (37-47); Lymphocyte # 1.18 X10^3/ul (0.83-4.51); Mean Corp Hgb Conc 33.3 g/dL (32-36); Mean Corpuscular Hgb 31.3 pg (27.0-32.0); Monocyte% 9.2 % (0-10); NRBC Flagged by Analyzer 0 % (0-5); Neutrophil # 2.71 X10^3/uL (2.7-7.7); Platelet Count 230 K/mm3 (150-450); RBC Distribution Width CV 12.7 % (11.6-14.6); RBC Distribution Width SD 43.7 fl (35.1-43.9); Red Blood Count 4.48 M/mm3 (4.2-5.4); White Blood Count 4.4 K/mm3 (4.4-11.0)
[2023-08-27 13:16] LABS: Erythrocyte Sedimentation Rate 7 mm/hr (0-30)
[2023-08-27 14:27] LABS: ALB/GLOB Ratio 0.9 RATIO (0.9-2.4); AST(SGOT) 23 U/L (15-37); Alanine Aminotransfer ALT/SGPT 30 U/L (13-56); Albumin, Serum 3.4 g/dL (3.2-5.0); Alkaline Phosphatase 210 U/L (45-117); Anion Gap 8 (5-15); BUN 18 mg/dL (7-18); BUN/Creat Ratio 15.8 RATIO (10-20); Chloride 101 mmol/L (98-107); Creatinine, Serum 1.14 mg/dL (0.55-1.02); EST Glomerular Filtration Rate 49 mL/min (>60); Est Glom Filt Rate - Afr Amer 60 mL/min (>60); Globulin 3.6 g/dL (2.2-4.2); Glucose 98 mg/dL (74-106); Potassium 4.5 mmol/L (3.5-5.1); Sodium Level 133 mmol/L (136-145); Thyroid Stim Hormone (TSH) 1.46 uIU/mL (0.358-3.74)
== END | disposition home or self-care (01) ==
LOC: MFPLAB 10:46
PROVIDERS: PCP Family Medicine; Visit Provider Family Medicine
DX: E03.9 Hypothyroidism, unspecified (principal); G30.0 Alzheimer's disease with early onset
CPT/HCPCS: 36415; 80053; 84443; 85025; 85652

== ENCOUNTER → 2024-02-25 | Outpatient (CLI) | payer MEDICARE, SELFPAY ==
[2024-02-25 12:33] LABS: AST(SGOT) 23 U/L (15-37); Alanine Aminotransfer ALT/SGPT 32 U/L (13-56); Anion Gap 6 (5-15); BUN 19 mg/dL (7-18); Calcium,Total 9.1 mg/dL (8.5-10.1); Chloride 101 mmol/L (98-107); Cholesterol 178 mg/dL (200); Creatinine, Serum 1.12 mg/dL (0.55-1.02); EST Glomerular Filtration Rate 50 mL/min (>60); Est Glom Filt Rate - Afr Amer 61 mL/min (>60); Glucose 92 mg/dL (74-106); High Density Lipoprotein 123 mg/dL; Potassium 3.9 mmol/L (3.5-5.1); Sodium Level 135 mmol/L (136-145); Triglycerides 50 mg/dL; Very Low Density Lipoprotein 10 mg/dL (5-40)
[2024-02-25 12:58] LABS: Protein, Urine (Random) 13.2 mg/dL (<11.9); Protein:Creat Ratio 111 mg/g CRE (0-200)
== END | disposition home or self-care (01) ==
LOC: MFPLAB 10:55
PROVIDERS: PCP Family Medicine; Visit Provider Family Medicine
DX: I10 Essential (primary) hypertension (principal); E78.5 Hyperlipidemia, unspecified
CPT/HCPCS: 36415; 80048; 80061; 82570; 84156; 84450; 84460

== ENCOUNTER → 2024-06-19 | Outpatient (CLI) | payer MEDICARE, SELFPAY ==
--- NOTE | 2024-06-19 12:15 | BI_ITS ---
EXAM: SCRN MAMM (CAD)W/RICKY BILAT DATE: 06/19/2024 CLINICAL HISTORY: F, Age 78 y/o , SCREENING BREAST CANCER RISK ASSESSMENT: Has not been calculated. TECHNIQUE: Bilateral screening digital breast tomosynthesis with 2D and 3D images. Computer aided detection. COMPARISON: Prior exam(s) dated 06/19/2023. FINDINGS: TISSUE DENSITY: The breast tissue is composed of scattered area of fibroglandular density. Bilateral Breast Mammographic Findings: No suspicious masses, suspicious clustered microcalcifications, architectural distortion or secondary sign of malignancy is identified in either breast. Stable nodular masslike densities are seen in both breasts. Benign round calcifications are seen in both breasts. A stable cluster of benign-appearing round and punctate calcifications are seen in the superior outer aspect of the left breast covering an area measuring approximately 3 mm. Cardiac pacemaker device is identified in the left pectoral region which does obscure a small amount of breast tissue in this location. BI/SCRN MAMM (CAD)W/RICKY BILAT IMPRESSION: Right Breast: BIRADS 2 BENIGN FINDING. Left Breast: BIRADS 2 BENIGN FINDING. OVERALL FINAL ASSESSMENT: BIRADS 2 BENIGN FINDING RECOMMENDATION: Routine annual follow-up in 1 Year A letter with findings and recommendations will be mailed to the patient. Reading Location: [id number]
== END | disposition home or self-care (01) ==
LOC: OPBI 11:46
PROVIDERS: PCP Family Medicine; Referring Provider Family Medicine; Visit Provider Family Medicine
DX: Z12.31 Encounter for screening mammogram for malignant neoplasm of breast (principal)
CPT/HCPCS: 77063; 77067

== ENCOUNTER → 2024-07-11 | Outpatient (CLI) | payer MEDICARE, SELFPAY ==
--- NOTE | 2024-07-11 13:30 | ECHOD_ITS ---
Reason For Study Reason For Study: Pacemaker, Murmur on exam Procedure This was a 2D Doppler, Color Flow transthoracic echocardiogram. Exam performed in department. Left Ventricle Normal LV size. Left ventricular systolic function is normal. The left ventricular ejection fraction is 60 %. No regional wall motion abnormalities noted. Right Ventricle Normal RV size. ICD or pacer leads identified within the right ventricle. Normal systolic function. Atria Normal left atrium. Normal right atrium. Mitral Valve Normal mitral valve. Mild-Moderate (1-2+) eccentric mitral valve insufficiency. Tricuspid Valve Normal tricuspid valve. Mild (1+) tricuspid valve insufficiency. Pulmonary artery systolic pressure is 38 mmHg. Aortic Valve Trisinus/trileaflet aortic valve. Mild focal aortic valve calcification. Pulmonic Valve Normal pulmonic valve. Great Vessels Normal aortic root. The pulmonary artery is normal size. Inferior vena cava collapse with respiration. Pericardium/Pleural No pericardial effusion. MMode/2D Measurements & Calculations LVIDd: 4.6 cm IVSd: 1.3 cm LVOT diam: 1.8 cm LVIDs: 3.1 cm LVPWd: 1.0 cm LVOT area: 2.5 cm2 RVDd: 3.3 cm FS: 33.8 % Ao root diam: 2.5 cm LAV(MOD-bp): 73.4 ml LVAd ap4: 26.7 cm2 ACS: 1.1 cm LAV(MOD-bp) Indexed: 47.6 ml/m2 LVLd ap4: 7.3 cm LAV(MOD-sp2): 70.1 ml EDV(MOD-sp4): 81.3 ml LAV(MOD-sp4): 66.3 ml EDV(sp4-el): 82.9 ml LVAs ap4: 14.8 cm2 LVLs ap4: 6.2 cm ESV(MOD-sp4): 29.9 ml ESV(sp4-el): 30.1 ml EF(MOD-sp4): 63.2 % EF(sp4-el): 63.7 % SV(MOD-sp4): 51.4 ml SV(sp4-el): 52.7 ml LA A4 area: 22.7 cm2 SI(MOD-sp4): 33.4 ml/m2 LA dimension(2D): 4.3 cm RA A4 area: 12.0 cm2 TAPSE: 1.9 cm Time Measurements MV dec time: 0.14 sec Doppler Measurements & Calculations MV E max harrison: 110.2 cm/sec Lat Peak E' Harrison: 8.8 cm/sec Med Peak E' Harrison: 8.1 cm/sec MV A max harrison: 93.2 cm/sec E/E' lat: 12.5 E/E' med: 13.7 MV E/A: 1.2 MV V2 max: 121.9 cm/sec MV P1/2t max harrison: 121.9 cm/sec Ao V2 max: 276.0 cm/sec MV max P.9 mmHg MV P1/2t: 58.9 msec Ao max P.5 mmHg MV V2 mean: 73.2 cm/sec Ao V2 mean: 199.0 cm/sec MV mean P.5 mmHg MV dec slope: 605.8 cm/sec2 Ao mean P.6 mmHg MV V2 VTI: 41.4 cm MVA(P1/2t): 3.7 cm2 Ao V2 VTI: 76.9 cm AV (velocity ratio): 0.42 MVA(VTI): 2.0 cm2 KANIKA(I,D): 1.1 cm2 KANIKA(V,D): 0.99 cm2 LV V1 max: 110.2 cm/sec SV(LVOT): 80.9 ml TR max harrison: 297.8 cm/sec LV V1 max P.9 mmHg TR max P.5 mmHg LV V1 mean P.4 mmHg LV V1 mean: 88.1 cm/sec LV V1 VTI: 32.5 cm ECHO/Echo Complete Interpretation Summary Normal LV size. Left ventricular systolic function is normal. The left ventricular ejection fraction is 60 %. Mild-Moderate (1-2+) eccentric mitral valve insufficiency. Pulmonary artery systolic pressure is 38 mmHg. Ordering Physician: Coleman Dutta Referring Physician: Coleman Dutta Performed By: Narayan Myles RCS
== END | disposition home or self-care (01) ==
LOC: CVS 13:30
PROVIDERS: PCP Family Medicine; Referring Provider Nurse Practitioner Family; Visit Provider Nurse Practitioner Family
DX: I48.0 Paroxysmal atrial fibrillation (principal); I49.5 Sick sinus syndrome; Z95.0 Presence of cardiac pacemaker; Z79.899 Other long term (current) drug therapy
CPT/HCPCS: 93306

== ENCOUNTER 2024-10-20 10:42 | Emergency (ER) | payer MEDICARE, SELFPAY ==
[2024-10-20 10:43] VITALS: BP 176/78; PULSE 60; RESP 18; TEMP 36.7; O2SAT 99; BMI 23.3
[2024-10-20 10:49] VITALS: O2SAT 99
--- NOTE | 2024-10-20 11:19 | EDS_ITS ---
HPI HPI - Fall History of Present Illness Chief Complaint: Fall Informant: patient and family Occured/Mechanism Occurred: Today Mechanism/Context: Yes same level fall and Yes trip Pain/Injury Pain Location: lower extremity (Left hip) Quality of Pain: Sharp Worsened by: Weightbearing Relieved by: Nothing Narrative Narrative: Patient presents with left hip pain that began after a fall. Patient tripped over an electrical cord and fell. Patient denies hitting her head. Patient denies any loss of consciousness. Patient was able to stand with the help of paramedics after the fall. Patient was unable to bear any weight on her left leg. Patient states her pain is mainly over her left hip. Patient denies any paresthesias or weakness. Patient denies any other injuries. [facility] Medical History History of closed dislocation of shoulder Paroxysmal atrial fibrillation (11/07/19) Atrial fibrillation with rapid ventricular response (11/07/19) Essential (primary) hypertension Mental disability Sinus bradycardia Dyslipidemia Paroxysmal atrial tachycardia Sick sinus syndrome Hypothyroidism Obesity (BMI 35.0-39.9 without comorbidity) Home Medications ?Medication ?Instructions ?Recorded ?Last Taken ?Type amiodarone 200 mg tablet 100 mg (1/2 x 200 mg) PO SESAR LY #45 03/22/21 10/20/24 Rx tabs levothyroxine 175 mcg tablet 175 mcg PO DAILY 10/20/24 10/20/24 History rosuvastatin 20 mg tablet (Crestor) 20 mg PO DAILY 10/19/24 History Allergy/AdvReac Type Severity Reaction Status Date / Time No Known Allergies Allergy Verified 10/20/24 10:50 Family History Mother CAD (coronary artery disease) Hypertension Heart disease afib Father CAD (coronary artery disease) CVA (cerebral vascular accident) Hypertension Heart disease afib Surgical History History of bilateral cataract extraction (~04/2024) History of tonsillectomy Presence of cardiac pacemaker (08/24/15) Social History Smoking Status: Former smoker quit date: 01/01/92 pack-years: 8 how long ago did patient quit smokin or more years alcohol intake: never substance use type: does not use caffeine: Yes Type: coffee Number of servings: 1 ROS ROS ED Constitutional Constitutional ED: Denies chills or fever(s) Eyes Eyes: Denies blurry vision or change in vision ENT ENT ED: Denies rhinorrhea or sore throat Cardiovascular Cardiovascular: Denies chest pain or palpitations Respiratory/Chest Respiratory/Chest: Denies cough or dyspnea Gastrointestinal Gastrointestinal: Denies nausea or vomiting Genitourinary Genitourinary ED: Reports urinary frequency; Denies dysuria or hematuria Musculoskeletal Musculoskeletal: Reports back pain; Denies neck pain Integumentary Denies abscess or rash Neurologic Neurologic: Denies headache(s) or weakness Allergic/Immunologic Allergic/Immunologic ED: Denies mouth swelling or urticaria EXAM Physical Exam Const Vital Signs: 10/20/24 10:43 10/20/24 10:49 10/20/24 12:43 Temperature 98.0 F Temperature Source Oral Pulse Rate 60 89 Respiratory Rate 18 14 Respiratory Effort Normal Non-Labored Respiratory Depth Normal Respiratory Pattern Normal Blood Pressure 176/78 H 141/66 H Blood Pressure Mean 110 91 Pulse Ox 99 99 97 Oxygen Delivery Method Room Air Room Air Room Air 10/20/24 13:58 Temperature 98.0 F Temperature Source Pulse Rate 89 Respiratory Rate 14 Respiratory Effort Respiratory Depth Respiratory Pattern Blood Pressure 141/66 H Blood Pressure Mean 91 Pulse Ox 97 Oxygen Delivery Method Positive well nourished and well developed Constitutional Narrative: BMI is 23.3. General Appearance ED: well developed and NAD HEENT Reports normocephalic atraumatic Neck full ROM and supple Resp normal respiratory effort and clear to auscultation bilaterally Cardio regular rate and regular rhythm Extremity Extremity Narrative: There is tenderness over the left hip. There is pain with internal and external rotation. There is no shortening. There is no calf tenderness. There is no tenderness of the knee. There is no tenderness over the iliac crest. Sensation is intact to light touch bilateral in the lower extremities. Strength is 5/5 bilaterally in the lower extremities. Neuro CN's II-XII intact bilaterally, moves all extremities, no focal motor deficits and no sensory deficits noted Brittanie Coma Scale: document GCS findings Spontaneous Obeys Commands Oriented 15 Sensorium / Orientation: alert Motor Exam: strength 5/5 throughout MDM MDM MDM Narrative Medical decision making narrative: Differential diagnosis includes hip fracture, contusion, and urinary tract infection. X-rays of the left hip and pelvis will be obtained to assess for hip fracture. Urinalysis will be obtained to assess for urinary tract infection. Lab Data Attestation: I reviewed the patient's lab results. Lab results narrative: Urinalysis was reviewed. There is no evidence of urinary tract infection. Labs: Laboratory Results - last 24 hr 10/20/24 11:55 Urine Color Yellow Urine Clarity Clear Urine pH 7.0 Ur Specific [place] 1.005 Urine Protein 15 H Urine Glucose (UA) Normal Urine Ketones Negative Urine Occult Blood 10 H Urine Nitrite Negative Urine Bilirubin Negative Urine Urobilinogen Normal Ur Leukocyte Esterase 25 H Urine RBC 0 SEEN Urine WBC 0 SEEN Ur Squamous Epith Cells 0 SEEN Urine Bacteria 0 SEEN Urine Mucus 0 SEEN Radiography Diagnostic Testing: Clinical Impression(s) from Imaging Studies Hip/Pelvis X-Ray 10/20/24 12:10 IMPRESSION: No hip fracture or dislocation is seen. Reading Location: [id number] X-rays of the left hip were obtained. There are 3 views. On my independent interpretation, there is no acute fracture. There is no dislocation noted. There are some degenerative changes. Radiologist also interpreted the x-rays and agrees. Treatment and Re-Evaluation Narrative: Patient was advised of her findings. Patient was ambulated here in the emergency department. Patient was able to ambulate without difficulty. Patient was instructed to take Tylenol or ibuprofen as needed for pain. Patient was instructed to follow-up with her primary care physician in 5 to 7 days. Patient and family understood and were agreeable with the plan. All questions were answered. Discharge Plan Triage Chief Complaint: Fall ED Provider: Gonzales Galvez Dx/Rx/DC Orders Clinical Impression: Contusion of left hip, initial encounter, Fall Instructions: ED Hip Contusion, ED Fall Prevention Prescriptions: No Action levothyroxine 175 mcg tablet 175 mcg PO DAILY rosuvastatin [Crestor] 20 mg tablet 20 mg PO DAILY amiodarone 200 mg tablet 100 mg PO DAILY Qty: 45 3RF Primary Care Provider: Mita Goodman Referrals: Katy Cruz MD [Med Staff - Social Services Counselor] - Mita Goodman MD [Primary Care Provider] - 5-7 Days Print Language: Bangladeshi Disposition Disposition: Home, Self Care Discharge Date/Time: 10/20/24 13:59
[2024-10-20 12:00] LABS: Mucous, Urine 0 SEEN /hpf (<or=2+); Red Blood Cells-Urine 0 SEEN /hpf (0-5); Squamous Epithelial Cells - UA 0 SEEN /hpf (5-10)
[2024-10-20 12:01] LABS: Color, Urine Yellow (Yellow); Glucose, Dipstick Normal (Normal); Ketone-Dipstick Negative (Negative); Leukocyte Esterase-Dipstick 25 /ul (Negative); Nitrite-Dipstick Negative (Negative); Occult Blood-Urine 10 /ul (Negative); Protein-Dipstick 15 mg/dl (Negative); Specific Gravity, Urine 1.005 (1.002-1.030); Urine Bilirubin Dipstick Negative (Negative)
--- NOTE | 2024-10-20 12:10 | RAD_ITS ---
PROCEDURE: HIP, UNI W/ PELVIS 2-3 VIEWS 10/20/2024 REASON FOR EXAM: INJURY/PAIN Left hip pain following injury. TECHNIQUE: HIP, UNI W/ PELVIS 2-3 VIEWS COMPARISON: None FINDINGS: Bones: No fracture is seen. Joints: Sclerosis and joint space narrowing of the symphysis pubis. Soft tissues: Moderate amount of fecal material is seen in the colon. Other: Disc space narrowing of the visualized lumbar spine. RAD/HIP, UNI W/ Pelvis 2-3 Views IMPRESSION: No hip fracture or dislocation is seen. Reading Location: [id number]
[2024-10-20 12:43] VITALS: BP 141/66; PULSE 89; RESP 14; O2SAT 97
[2024-10-20 13:58] VITALS: BP 141/66; PULSE 89; RESP 14; TEMP 36.7; O2SAT 97
== END 2024-10-20 13:59 | disposition home or self-care (01) ==
PROVIDERS: Emergency Provider Emergency Medicine; PCP Family Medicine; Visit Provider Emergency Medicine
DX: S70.02XA Contusion of left hip, initial encounter (principal); I48.0 Paroxysmal atrial fibrillation; M25.552 Pain in left hip; Z87.891 Personal history of nicotine dependence; E78.5 Hyperlipidemia, unspecified; I10 Essential (primary) hypertension; W01.0XXA Fall on same level from slipping, tripping and stumbling without subsequent striking against object, initial encounter; E03.9 Hypothyroidism, unspecified; Z79.890 Hormone replacement therapy; Z79.899 Other long term (current) drug therapy; Z98.41 Cataract extraction status, right eye; Z98.42 Cataract extraction status, left eye
CPT/HCPCS: 73502; 81001; 99284

== ENCOUNTER → 2025-02-03 | Outpatient (CLI) | payer MEDICARE, SELFPAY ==
[2025-02-03 13:19] LABS: Cholesterol 182 mg/dL (<=200); Low Density Lipoprotein Calc. 79 mg/dL; Triglycerides 67 mg/dL; Very Low Density Lipoprotein 13 mg/dL (5-40); cholesterol:hdl ratio screen 2.00
== END | disposition home or self-care (01) ==
PROVIDERS: PCP Family Medicine; Referring Provider Family Medicine; Visit Provider Family Medicine
DX: Z79.899 Other long term (current) drug therapy (principal); Z13.1 Encounter for screening for diabetes mellitus; Z13.220 Encounter for screening for lipoid disorders
CPT/HCPCS: 36415; 71046; 80061; 83036